=== PATIENT | female | born 1950 | race Caucasian/White ===

== ENCOUNTER 2019-02-02 10:33 | Inpatient (IN) | payer MEDICARE | END 2019-02-03 12:10 | disposition home or self-care (01) | LOC: 2AH 02-03 00:05 → DAHIP 10:33 → 2AH 16:27 | PROC: 031 Upper Arteries, Bypass (ICD-10-PCS; principal; 2019-02-02 12:50) | DX: T82.9XXA Unspecified complication of cardiac and vascular prosthetic device, implant and graft, initial encounter (principal) ==